=== PATIENT | female | born 1975 | race Caucasian/White ===

== ENCOUNTER 2020-06-21 08:02 | Emergency (ER) | payer OTHER ==
[2020-06-21 08:07] VITALS: BP 141/89; PULSE 84; TEMP 98.6; BMI 24.2
[2020-06-21] MEDS ORDERED: ACETAMINOPHEN 500 MG TABLET (FP) PO ONE (08:26)
[2020-06-21] MEDS ORDERED: ACETAMINOPHEN 500 MG TABLET (FP) ONE (08:34)
[2020-06-21] MEDS ORDERED: FLUORESCEIN NA 1 EA STRIP OD ONE (08:36)
[2020-06-21] MEDS ORDERED: FLUORESCEIN NA 1 EA STRIP ONE (08:41)
[2020-06-21] MEDS ORDERED: TETRACAINE 0.5% HCL 0.6ML DROPPER.BOTTLE OD ONE (08:43)
[2020-06-21] MEDS ORDERED: IBUPROFEN 400 MG TABLET (FP) PO ONE ×2 (08:43→08:51)
[2020-06-21] MEDS ORDERED: TETRACAINE 0.5% OPHTH SOLN 2 ML BOTTLE ONE (08:44)
== END 2020-06-21 09:29 | disposition home or self-care (01) ==
LOC: JER 08:02
DX: S05.01XA Injury of conjunctiva and corneal abrasion without foreign body, right eye, initial encounter (principal)
CPT/HCPCS: 99283-25